=== PATIENT | male | born 1985 | race Hispanic/Latino ===

== ENCOUNTER 2017-06-04 19:43 | Emergency (ER) | payer OTHER ==
[~2017-06-04] VITALS: Ht 175.3 cm; Wt 68.0 kg
[2017-06-04 20:05] VITALS: BP 136/94
[2017-06-04] MEDS ORDERED: WARFARIN SODIUM5 M1 PO (20:43)
[2017-06-04] MEDS ORDERED: WARFARIN SODIUM4 M1 PO (20:44)
[2017-06-04] MEDS ORDERED: LO-DOSE ASPIRIN81 MG PO (20:44)
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
[2017-06-04 21:54] LABS: PT 17.1 SEC (9.4-12.5)
== END 2017-06-04 22:11 ==
LOC: ERH 19:43
PROVIDERS: Physician Assistant Medical
DX: S16.1XXA Strain of muscle, fascia and tendon at neck level, initial encounter (principal); R51 Headache; V49.40XA Driver injured in collision with unspecified motor vehicles in traffic accident, initial encounter; Y92.411 Interstate highway as the place of occurrence of the external cause; Z79.01 Long term (current) use of anticoagulants